=== PATIENT | female | born 1985 | race Caucasian/White ===

== ENCOUNTER 2017-10-08 11:46 | Emergency (ER) | payer OTHER, MEDICAID, SELFPAY ==
[2017-10-08 12:09] VITALS: BP 128/75; PULSE 64; RESP 15; TEMP 36.3; O2SAT 98; BMI 42.9
--- NOTE | 2017-10-08 12:32 | ED.DENTAL ---
HPI - Dental/Oral General Chief complaint: Dental/Oral Stated complaint: STATES TMJ Time Seen by Provider: 10/08/17 12:08 PFSH Social History Smoking Status: Current every day smoker Exam Initial Vital Signs Initial Vital Signs: Vital Signs Temperature 97.3 F L 10/08/17 12:09 Pulse Rate 64 10/08/17 12:09 Respiratory Rate 15 10/08/17 12:09 Blood Pressure 128/75 H 10/08/17 12:09 Pulse Oximetry 64 L 10/08/17 12:09 Course Vital Signs - 8 hr 10/08/17 12:09 Temperature 97.3 F L Pulse Rate 64 Respiratory Rate 15 Blood Pressure 128/75 H Pulse Oximetry 64 L
--- NOTE | 2017-10-08 13:07 | PC.NURSE ---
Pt states TMJ dx since 16 years old after being bucked off a horse. Flare ups happen occasionally and she began experiencing a flare up approx 1 week ago. Her baby tipped her head back and hit the pt in the jaw area, causing swelling and increased pain that radiates down the jaw, neck, and up to the alevism above the eye.
--- NOTE | 2017-10-08 13:29 | ED_ITS ---
HPI - Dental/Oral General Chief complaint: Dental/Oral Stated complaint: STATES TMJ Time Seen by Provider: 10/08/17 12:08 History of Present Illness HPI Narrative: HPI 31-year-old female presents for evaluation of left-sided facial discomfort. Patient reports a history of intermittent pain by her left temporomandibular joint. His pain has occurred intermittently for years following a fall from horseback at age 15. Patient notes that it flared up this morning when she is playing with her child in her child set up quickly and accidentally head butted the side of her left face. The patient's child is approximately 3 years old. Patient noted that she had been having mild left TMJ pain last week. Patient denies fevers, headache, changes in vision or hearing, or ear pain. Patient takes no blood thinners or anticoagulants. No LOC. M/S/F/SocHx notable for: please see HPI; remainder reviewed with patient and in chart. ROS: Negative constitutional, eye, cardiovascular, pulmonary, GI, , MSK, skin , neurologic, psychiatric, endocrine unless noted in the HPI. Exam Gen: Pleasant, non-toxic appearing, resting comfortably HEENT: NC, AT, PEERL, EOMI. TMs clear bilaterally. External auditory canals visually normal bilaterally. Left cheek, face, and temporal region visually normal without palpable abnormalities, no erythema, crepitus, fluctuance, or warmth. Palpation of the temporomandibular joints bilaterally without discernible abnormalities on full opening of mouth and closure. Mouth: globally poor dentition, multiple visible caries, multiple missing teeth , floor of the mouth soft without swelling or tongue elevation, no peritonsilar swelling bilaterally, uvula midline, moist mucus membranes without lesions, tongue without plaques or lesions. Neck: Supple with a full range of motion, no swelling, no cervical lymphdenopathy, no difficulty swallowing. Resp: Clear to auscultation bilaterally, normal work of breathing, no accessory muscle usage. Card: Regular rate and rhythm with no murmurs, rubs, or gallops, extremities warm and well perfused. GI: non-distended MSK: No visible deformities, strength and tone without visually appreciable deficit. Skin: Normal color with no visible lesions. Neuro: AO x 3, no facial asymmetry, vision and hearing WNL. Psych: Mood and affect appropriate. MDM Previous chart, nursing note, and vitals reviewed. A: 31-year-old female presents for evaluation of left-sided facial discomfort after being accidentally struck on the side of the head by your child's head after her child set up suddenly while she (the child) was being held in the mother's hands. DDX: concussion, fracture, jaw fracture, caries, pulpitis, gingivitis, periodontitis, periapical abscess, jaw osteomyelitis, Ludgwig's angina. ED Course: exam without evidence of concussion, fractures, clinically appreciable TMJ dysfunction/subluxation, auditory canal the TMs visually normal , no evidence of cellulitis. Patient with globally poor dentition no evidence of appreciable clinically significant complications. Recommend ibuprofen, acetaminophen, and cold pack with prompt dental follow up for further dental care. Impression: facial pain (please reference below for remainder of encounter information) [facility] Social History Smoking Status: Current every day smoker Exam Initial Vital Signs Initial Vital Signs: Vital Signs Temperature 97.3 F L 10/08/17 12:09 Pulse Rate 64 10/08/17 12:09 Respiratory Rate 15 10/08/17 12:09 Blood Pressure 128/75 H 10/08/17 12:09 Pulse Oximetry 64 L 10/08/17 12:09 Course Vital Signs - 8 hr 10/08/17 12:09 Temperature 97.3 F L Pulse Rate 64 Respiratory Rate 15 Blood Pressure 128/75 H Pulse Oximetry 64 L
[2017-10-08] MEDS: KETOROLAC 60 MG/2 ML VIAL 30 MG IM (13:58)
[2017-10-08 14:00] VITALS: BP 124/92; PULSE 63; RESP 14
[2017-10-08 14:20] VITALS: BP 136/95; PULSE 64; RESP 18; O2SAT 99
== END 2017-10-08 14:21 | disposition home or self-care (01) ==
PROVIDERS: Emergency Provider Emergency Medicine
DX: R51 Headache (principal)
CPT/HCPCS: 96372; 99282; 99283; J1885

== ENCOUNTER → 2019-04-25 18:39 | Outpatient (CLI) | payer OTHER, MEDICAID, SELFPAY | PROVIDERS: Visit Provider Physician Assistant | DX: J02.9 Acute pharyngitis, unspecified (principal) | CPT/HCPCS: 87070 ==

== ENCOUNTER → 2019-07-24 11:11 | Outpatient (CLI) | payer OTHER, MEDICAID, SELFPAY ==
[2019-07-24 12:22] LABS: Influenza A - CEPHEID Flu A NEGATIVE (NEGATIVE); Influenza B - CEPHEID Flu B NEGATIVE (NEGATIVE)
[2019-07-29 12:22] LABS: COVID19 Sendout Not Detected (Not Detected)
== END ==
PROVIDERS: Visit Provider Physician Assistant
DX: R68.89 Other general symptoms and signs (principal)
CPT/HCPCS: 87502; 87635

== ENCOUNTER → 2020-01-01 17:32 | Outpatient (CLI) | payer OTHER, MEDICAID, SELFPAY ==
--- NOTE | 2020-01-01 | DI.MRI.S_ITS ---
PROCEDURE: MR HEAD/BRAIN WO CON INDICATIONS: MIGRAINE TECHNIQUE: Noncontrast axial T1 spin echo, axial T2 fast spin echo, sagittal and axial FLAIR, coronal T2 fast spin echo, axial gradient echo, axial diffusion and ADC through the brain. COMPARISON: None. FINDINGS: Image quality: Excellent. CSF Spaces: Basal cisterns are patent. No extra-axial fluid collections. Ventricles are normal in size and shape. Brain: No intracranial masses or hemorrhage. Conway/white matter interface is normal. Brainstem appears normal. Diffusion-weighted images demonstrate no acute ischemic insult. No chronic ischemic insults. Normal intravascular flow voids are present. Skull and face: Calvarium has normal marrow signal. Orbits appear normal. Sinuses: Sinuses and mastoids are clear. IMPRESSION: Normal for age. Source of headache symptoms is not seen. Dictated by: Fernando Doan M.D. on 01/02/2020 at 8:24 Approved by: Fernando Doan M.D. on 01/02/2020 at 8:25
--- NOTE | 2020-01-01 | DI.MRI.S_ITS ---
PROCEDURE: MR CERVICAL SPINE WO CON INDICATIONS: MIGRAINE TECHNIQUE: Noncontrast sagittal T1 spin echo and T2 fast spin echo, sagittal STIR, foraminal oblique sagittal T2 fast spin echo, and axial gradient echo or T2 fast spin echo through the cervical spine. COMPARISON: None. FINDINGS: Image quality: Excellent. Alignment and Curvature: There is normal bony alignment. Bone Marrow: Marrow demonstrates normal overall signal. Spinal Cord: Visualized spinal cord has normal size and signal but is mildly distorted anteriorly at both C5-6 and C6-7 by chronic appearing posterior disc bulging at these 2 levels. No cerebellar tonsillar herniation. Paraspinous Soft Tissues: No paravertebral masses. Prevertebral soft tissues are normal in thickness. C2-C3: Normal appearance. C3-C4: Normal appearance. C4-C5: Normal appearance. C5-C6: Yimi-ux-djcjsash degenerative disc height reduction and desiccation with a posterior broad-based transverse disc bulge effacing CSF from the anterior thecal sac and slightly flattening the anterior cord, with mild secondary spinal stenosis anteriorly. Facet osteoarthritis at this level produces mild symmetric foraminal stenosis. C6-C7: The degenerative disc disease at this level is slightly more prominent than at the level immediately above and focally produces a small disc protrusion at and to the left of midline effacing CSF from the anterior thecal sac and slightly distorting the midline and left anterior margin of the cervical cord. Facet osteoarthritis is mild at this level, resulting in mild anterior spinal stenosis focally. C7-T1: Normal appearance. IMPRESSION: No disc herniation found. Focal degenerative disc disease is present at C5-6 and C6-7 as discussed above resulting in a transverse pattern of mild anterior spinal stenosis at C5-6 and a more focal midline and left paramedian anterior spinal stenosis at C6-7. Mild symmetric foraminal stenosis at each of these 2 levels is superimposed. Dictated by: Fernando Doan M.D. on 01/02/2020 at 8:25 Approved by: Fernando Doan M.D. on 01/02/2020 at 8:29
== END ==
PROVIDERS: Referring Provider Family Medicine; Visit Provider Family Medicine
DX: G43.909 Migraine, unspecified, not intractable, without status migrainosus (principal); M50.322 Other cervical disc degeneration at C5-C6 level; M48.02 Spinal stenosis, cervical region
CPT/HCPCS: 70551; 72141

== ENCOUNTER → 2020-03-08 09:59 | Outpatient (CLI) | payer OTHER, MEDICAID, SELFPAY ==
--- NOTE | 2020-03-08 | DI.MRI.S_ITS ---
PROCEDURE: MR SHOULDER RT WO CON INDICATIONS: Pain in right shoulder TECHNIQUE: Noncontrast oblique coronal T2 fast spin echo with fat saturation, oblique sagittal T1 spin echo and T2 fast spin echo with fat saturation, axial T1 spin echo and T2 fast spin echo with fat saturation through the shoulder. COMPARISON: None. FINDINGS: Image quality: Excellent. Rotator cuff: Partial-thickness low-grade bursal sided tear of the supraspinatus critical zone. Mild infraspinatus tendinopathy. Teres minor appears intact. Subscapularis tendon appears intact. No atrophy of the rotator cuff muscles however mild fatty infiltration of the infraspinatus. Bones and bursae: No bone marrow contusions or fractures. Moderate acromioclavicular joint degeneration. Acromion demonstrates conventional anatomy, without an os acromiale. Trace subacromial-subdeltoid bursitis. Capsule and soft tissues: Labrum: No definite labral tear is seen there is a presumed posterior synovial fold, image 13/6 (anatomic variant). Long head of the biceps tendon intact. The rotator interval appears normal, without fibrosis. Coracohumeral ligament intact. IMPRESSION: Partial-thickness low-grade bursal sided tear of the supraspinatus critical zone. Mild infraspinatus tendinopathy Trace subacromial-subdeltoid bursitis Dictated by: Nilo Perales M.D. on 03/10/2020 at 8:50 Approved by: Nilo Perales M.D. on 03/10/2020 at 8:59
== END ==
PROVIDERS: PCP Family Medicine; Referring Provider Family Medicine; Visit Provider Family Medicine
DX: M25.511 Pain in right shoulder (principal); M75.111 Incomplete rotator cuff tear or rupture of right shoulder, not specified as traumatic
CPT/HCPCS: 73221

== ENCOUNTER 2021-07-08 13:49 | Emergency (ER) | payer OTHER, MEDICAID, SELFPAY ==
[2021-07-08 13:59] VITALS: BP 120/79; PULSE 81; RESP 22; TEMP 36.6; O2SAT 100
[2021-07-08 14:20] LABS: Add Manual Diff / Slide Review NO; Basophils Absolute Auto 0 /uL (0-100); Basophils Percent Auto 0.6 % (0-2); Eosinophils Absolute Auto 100 /uL (0-450); Hematocrit 39.1 % (36-46); Hemoglobin 12.8 g/dL (12.0-16.0); Lymphocytes Absolute Auto 2200 /uL (1100-4500); Lymphocytes Percent Auto 30.2 % (25-40); Mean Corpuscular HGB Conc 32.9 % (30-36); Mean Corpuscular Hemoglobin 27.2 PG (26-34); Mean Corpuscular Volume 82.9 fL (80-100); Monocytes Absolute Auto 300 /uL (0-900); Neutrophils Absolute Auto 4700 /uL (1500-7000); Neutrophils Percent Auto 64.2 % (50-75); Platelet Count 232 X10^3/uL (150-400); Red Blood Cell Count 4.72 X10^6/uL (4.0-5.2); Red Cell Distribution Width 16.3 % (11.6-14.8); White Blood Cell Count 7.3 X10^3/uL (4.5-11.0)
[2021-07-08 14:28] LABS: Alanine Aminotransferase 13 IU/L (<35); Albumin 4.6 g/dL (3.5-5.0); Albumin Globulin Ratio 1.4 (1.0-2.8); Alkaline Phosphatase 61 U/L (38-126); Aspartate Aminotransferase 24 IU/L (14-36); BUN Creatinine Ratio 22.6 (6-22); Bilirubin Total 0.5 mg/dL (0.2-1.3); Blood Urea Nitrogen 14 mg/dL (7-17); Calcium 9.2 mg/dL (8.4-10.2); Carbon Dioxide 26 mmol/L (22-32); Chloride 106 mmol/L (98-107); Estimated Glomerular Filt Rate > 60.0 mL/min (>60); Globulin 3.4 g/dL (1.7-4.1); Glucose 94 mg/dL (70-100); HEMOLYSIS < 15 (0-50); Lipase 90 U/L (23-300); Potassium 3.9 mmol/L (3.4-5.1); Sodium 137 mmol/L (137-145)
--- NOTE | 2021-07-08 17:42 | DI.CT.S_ITS ---
PROCEDURE: CT ABDOMEN PELVIS W CON INDICATIONS: RLQ pain TECHNIQUE: After the administration of intravenous contrast, axial sections acquired from the lung bases to the pubic symphysis. Coronal and sagittal reformats were performed. For radiation dose reduction, the following was used: automated exposure control, adjustment of mA and/or kV according to patient size. COMPARISON: None. FINDINGS: Image quality: Excellent. Lung bases: Unremarkable. Heart: No significant findings. ABDOMEN: Liver: No masses Gallbladder: Normal wall thickness. Biliary ducts: Nondilated. Pancreas: Normal. Spleen: Normal size. Adrenal Glands: No nodules. Kidneys and Ureters: Normal enhancement. No hydronephrosis or hydroureter. No calcifications. Stomach and Bowel: Pelvic and right abdominal small bowel loops and proximal colon are fluid-filled. The appendix was not well seen. No inflammatory changes. Peritoneum: Trace fluid in the right posterior cul-de-sac. No free intraperitoneal air. Ventral Wall: No hernias. Abdominal Nodes: No retroperitoneal or mesenteric adenopathy by size criteria. Vessels: Aorta and inferior vena cava are normal in size. PELVIS: Pelvic Organs: The retroverted uterus contains a small hyperdense or hyper enhancing endometrial nodule measuring 9 mm. The right ovary is unremarkable. The left ovary contains an involuting hypervascular corpus luteum. Bladder: Unremarkable. Pelvic Nodes: No enlarged lymph nodes. Miscellaneous: No hernias are seen. Bones: Unremarkable. IMPRESSION: 1. Nonvisualization of the appendix. Fluid-filled prominent small and proximal large bowel loops may indicate enteritis. 2. Hyperdense or hypervascular endometrial nodule. Pelvic ultrasound is recommended. Dictated by: Daniella Guerrero M.D. on 07/08/2021 at 18:28 Approved by: Daniella Guerrero M.D. on 07/08/2021 at 18:37
--- NOTE | 2021-07-08 18:20 | ED_ITS ---
HPI - Abdominal Pain General Chief Complaint: Abdominal Pain Stated Complaint: Lower rt abd pain- r/o appendicitis Time Seen by Provider: 07/08/21 17:42 Source: patient Mode of arrival: Ambulatory History of Present Illness HPI narrative: Patient is a 35-year-old female history of chronic pain with who takes oxycodone presenting today with right lower quadrant pain. She states she woke up with right lower quadrant pain. Last night she felt well she ate dinner no problem. She denies any flank pain. It hurts every time she moves. She has not had any nausea or vomiting. She does have a history of ovarian cysts. She was sent here from another provider for rule out appendicitis. She denies any painful or frequent urination. Related Data Previous Rx's Medication Instructions Recorded ondansetron 4 mg disintegrating 4 mg PO Q6-8H PRN #30 tab 06/07/19 tablet albuterol sulfate 90 mcg/actuation 2 puff INHALATION Q4-6H PRN #8.5 07/24/19 aerosol inhaler gram Allergies Allergy/AdvReac Type Severity Reaction Status Date / Time Penicillins Allergy Verified 07/24/19 11:46 clindamycin AdvReac Mild disorented Verified 07/24/19 11:46 Review of Systems Review of Systems Narrative: GENERAL: Denies chills, fatigue, malaise, fever, sweats, travel HEENT: Denies sinus pain, ear pain, sore throat, difficulty swallowing, neck pain RESPIRATORY: Denies dyspnea, cough, wheezing, hemoptysis, sputum. CARDIOVASCULAR: Denies chest pain, palpitations, orthopnea, edema GASTROINTESTINAL: See HPI : Denies dysuria, frequency, incontinence, hematuria, urinary retention, flank pain. MUSCULOSKELETAL: Denies weakness, joint pain, or bony pain SKIN: No rash, no erythema, no pruritus NEUROLOGIC: Denies weakness, dizziness, headache, numbness, change in speech, confusion PSYCHIATRIC: No concerning psychosocial issues. 12 point review of systems is negative except for those stated above and HPI Patient History Social History Smoking Status: Current every day smoker Smoking Status: Current every day smoker alcohol intake frequency: a few times a week Substance Use Type: marijuana Exam Initial Vital Signs Initial Vital Signs: Vital Signs Temperature 97.9 F 07/08/21 13:59 Pulse Rate 81 07/08/21 13:59 Respiratory Rate 22 07/08/21 13:59 Blood Pressure 120/79 07/08/21 13:59 Pulse Oximetry 100 07/08/21 13:59 GENERAL: Well-appearing, well-nourished and in no acute distress. HEENT: Head atraumatic,EOMI, pupils reactive, face symmetric, moist mucous membranes CARDIOVASCULAR: Regular rate and rhythm without murmurs, rubs or gallops. RESPIRATORY: Breath sounds equal bilaterally, no wheezes rales or rhonchi. ABDOMEN: Soft, right lower quadrant tenderness no guarding no rebound the lower abdominal pain negative Lockhart sign EXTREMITIES: Normal range of motion, no clubbing or edema. Neurovascularly intact NEUROLOGICAL: Alert and oriented x4.Normal gait and speech. SKIN: Warm, dry, no laceration, no petechiae, no rashes or lesions. Course Orders Ordered: Discontinued Medications Hydromorphone HCl (Hydromorphone 2 Mg Inj) 1 mg SUBCUT Q4H PRN PRN Reason: Pain, Severe (7-10) Hydromorphone HCl (Hydromorphone 1 Mg Inj) 1 mg IV NOW ONE Stop: 07/08/21 19:03 Last Admin: 07/08/21 19:13 Dose: 1 mg Documented by: RIP Ketorolac Tromethamine (Ketorolac 30 Mg/Ml Vial) 15 mg IV NOW ONE Stop: 07/08/21 17:43 Last Admin: 07/08/21 18:32 Dose: 15 mg Documented by: DRE Vital Signs Vital signs: Vital Signs - 8 hr 07/08/21 13:59 07/08/21 18:31 Temperature 97.9 F Pulse Rate 81 67 Respiratory Rate 22 Blood Pressure 120/79 130/82 Pulse Oximetry 100 100 MDM - Abdominal Pain Lab Data Result diagrams: 07/08/21 14:07 07/08/21 14:07 Labs: Lab Results 07/08/21 07/08/21 Range/Units 14:07 14:07 WBC 7.3 (4.5-11.0) X10^3/uL RBC 4.72 (4.0-5.2) X10^6/uL Hgb 12.8 (12.0-16.0) g/dL Hct 39.1 (36-46) % MCV 82.9 (80-100) fL MCH 27.2 (26-34) PG MCHC 32.9 (30-36) % RDW 16.3 H (11.6-14.8) % Plt Count 232 (150-400) X10^3/uL Neut % (Auto) 64.2 (50-75) % Lymph % (Auto) 30.2 (25-40) % [place] % (Auto) 4.0 (3-14) % Eos % (Auto) 1.0 L (2-4) % Baso % (Auto) 0.6 (0-2) % Neut # (Auto) 4700 (8509-0205) /uL Lymph # (Auto) 2200 (6801-1825) /uL [place] # (Auto) 300 (0-900) /uL Eos # (Auto) 100 (0-450) /uL Baso # (Auto) 0 (0-100) /uL Sodium 137 (137-145) mmol/L Potassium 3.9 (3.4-5.1) mmol/L Chloride 106 (98-107) mmol/L Carbon Dioxide 26 (22-32) mmol/L BUN 14 (7-17) mg/dL Creatinine 0.62 (0.52-1.04) mg/dL Estimated GFR > 60.0 (>60) mL/min BUN/Creatinine Ratio 22.6 H (6-22) Glucose 94 (70-100) mg/dL Calcium 9.2 (8.4-10.2) mg/dL Total Bilirubin 0.5 (0.2-1.3) mg/dL AST 24 (14-36) IU/L ALT 13 (<35) IU/L Alkaline Phosphatase 61 (38-126) U/L Total Protein 8.0 (6.3-8.2) g/dL Albumin 4.6 (3.5-5.0) g/dL Globulin 3.4 (1.7-4.1) g/dL Albumin/Globulin Ratio 1.4 (1.0-2.8) Lipase 90 (23-300) U/L Point of care testing: Point of Care Testing Test Results Negative Urine Dip Bedside Urine Glucose Negative Bedside Urine Bilirubin - Negative Bedside Urine Ketone +/- 5 Urine Specific [place] 1.025 Bedside Urine Occult Blood - Negative Bedside Urine pH 6.0 Bedside Urine Protein - Negative Bedside Urine Urobilinogen - Negative Bedside Urine Nitrite - Negative Bedside Urine Leukocytes - Negative Esterase Imaging Data CT scan - abdomen/pelvis: Radiologist's Impression: PROCEDURE:? CT ABDOMEN PELVIS W CON ? INDICATIONS:? RLQ pain ? TECHNIQUE:? After the administration of intravenous contrast, axial sections acquired from the lung bases to the pubic symphysis.? Coronal and sagittal reformats were performed.? For radiation dose reduction, the following was used:? automated exposure control, adjustment of mA and/or kV according to patient size.? ? COMPARISON:? None. ? FINDINGS:? Image quality:? Excellent.? ? Lung bases:? Unremarkable. Heart:? No significant findings. ? ABDOMEN: Liver:? No masses Gallbladder:? Normal wall thickness. Biliary ducts:? Nondilated. Pancreas:? Normal. Spleen:? Normal size. Adrenal Glands:? No nodules. Kidneys and Ureters:? Normal enhancement.? No hydronephrosis or hydroureter.? No calcifications. ? Stomach and Bowel:? Pelvic and right abdominal small bowel loops and proximal colon are fluid-filled.? The appendix was not well seen.? No inflammatory changes. Peritoneum:? Trace fluid in the right posterior cul-de-sac.? No free intraperitoneal air. ? Ventral Wall: ? No hernias.? Abdominal Nodes:? No retroperitoneal or mesenteric adenopathy by size criteria.? Vessels:? Aorta and inferior vena cava are normal in size.? ? PELVIS: Pelvic Organs:? The retroverted uterus contains a small hyperdense or hyper e nhancing endometrial nodule measuring 9 mm.? The right ovary is unremarkable.? The left ovary contains an involuting hypervascular corpus luteum.? Bladder:? Unremarkable.? ? Pelvic Nodes: No enlarged lymph nodes.? Miscellaneous: No hernias are seen. ? ? ? Bones:? Unremarkable.? IMPRESSION:? ? 1. Nonvisualization of the appendix.? Fluid-filled prominent small and proximal large bowel loops may indicate enteritis. ? 2. Hyperdense or hypervascular endometrial nodule.? Pelvic ultrasound is rec ommended. ? ? ? Dictated by: Daniella Guerrero M.D. on 07/08/2021 at 18:28 ? ? MDM Narrative Medical decision making narrative: Patient is afebrile without leukocytosis. CT shows inflammation and probable enteritis. Patient now reports that she has had diarrhea below last 3 days. Nonbloody no nausea or vomiting. At this time I recommend supportive care only, no indication for antibiotics. However symptoms worsen she may require antibiotics. She had diarrhea today. Decreased appetite for sure. Discharge Plan Departure Patient Disposition: Home Clinical Impression: Gastroenteritis Instructions: DI for Viral Gastroenteritis -- Adult Activity Restrictions/Additional Instructions: *You have been diagnosed with gastroenteritis *What to do: At this time appendix is not fully visualized, but you do have some inflammation. No antibiotics at this time. Increase fluid intake with Gatorade or Gatorade like substance. You may also require an outpatient pelvic ultrasound, for abnormal endometrium *Continue to take medications as directed *Follow up with your primary care provider in 2-3 days or call [phone] *Return to ER if you should have increasing abdominal pain, inability to tima ate fluid, fever or any new, worsening or concerning symptoms Prescriptions: No Action albuterol sulfate 90 mcg/actuation HFA aerosol inhaler 2 puff INHALATION Q4-6H PRN (Reason: bronchospasm) Qty: 8.5 0RF ondansetron 4 mg tablet,disintegrating 4 mg PO Q6-8H PRN (Reason: nausea and vomiting) Qty: 30 0RF Referrals: Jona Graff MD [Primary Care Provider] - Stand Alone Forms: Work Release Note
[2021-07-08 18:31] VITALS: BP 130/82; PULSE 67; O2SAT 100
[2021-07-08] MEDS: KETOROLAC 30 MG/ML VIAL 15 MG IV (18:32)
[2021-07-08] MEDS: HYDROMORPHONE 1 MG INJ IV (19:13)
[2021-07-08 19:16] VITALS: BP 129/74; PULSE 77; RESP 16; O2SAT 99
== END 2021-07-08 19:16 | disposition home or self-care (01) ==
PROVIDERS: Emergency Provider Emergency Medicine; PCP Family Medicine
DX: K52.9 Noninfective gastroenteritis and colitis, unspecified (principal); F17.200 Nicotine dependence, unspecified, uncomplicated
CPT/HCPCS: 36415; 74177; 80053; 81003; 81025; 83690; 85025; 96374; 96375; 99284; J1170; J1885; Q9967

== ENCOUNTER → 2022-05-14 14:21 | Outpatient (CLI) | payer OTHER, MEDICAID, SELFPAY ==
[2022-05-14 15:26] LABS: Add Manual Diff / Slide Review NO; Basophils Absolute Auto 0 /uL (0-100); Basophils Percent Auto 0.6 % (0-2); Eosinophils Absolute Auto 100 /uL (0-450); Eosinophils Percent Auto 1.5 % (2-4); Hematocrit 36.7 % (36-46); Hemoglobin 11.8 g/dL (12.0-16.0); Lymphocytes Absolute Auto 1700 /uL (1100-4500); Lymphocytes Percent Auto 23.6 % (25-40); Mean Corpuscular HGB Conc 32.3 % (30-36); Mean Corpuscular Hemoglobin 27.3 PG (26-34); Mean Corpuscular Volume 84.5 fL (80-100); Monocytes Absolute Auto 400 /uL (0-900); Neutrophils Absolute Auto 5000 /uL (1500-7000); Neutrophils Percent Auto 68.3 % (50-75); Platelet Count 255 X10^3/uL (150-400); Red Blood Cell Count 4.34 X10^6/uL (4.0-5.2); Red Cell Distribution Width 17.8 % (11.6-14.8); White Blood Cell Count 7.3 X10^3/uL (4.5-11.0)
[2022-05-14 15:41] LABS: Alanine Aminotransferase 29 IU/L (<35); Albumin 4.5 g/dL (3.5-5.0); Albumin Globulin Ratio 1.3 (1.0-2.8); Alkaline Phosphatase 78 U/L (38-126); Aspartate Aminotransferase 34 IU/L (14-36); BUN Creatinine Ratio 31.6 (6-22); Bilirubin Total 0.4 mg/dL (0.2-1.3); Blood Urea Nitrogen 18 mg/dL (7-17); Calcium 9.5 mg/dL (8.4-10.2); Carbon Dioxide 29 mmol/L (22-32); Chloride 101 mmol/L (98-107); Estimated Glomerular Filt Rate > 60 mL/min (>60); Globulin 3.5 g/dL (1.7-4.1); Glucose 96 mg/dL (70-100); HEMOLYSIS < 15 (0-50); Potassium 4.2 mmol/L (3.4-5.1); Sodium 139 mmol/L (137-145)
[2022-05-14 15:54] LABS: Free T4, Direct Thyroxine 0.94 ng/dL (0.78-2.19)
[2022-05-14 16:28] LABS: Vitamin B12 530 pg/mL (239-931)
[2022-05-14 16:33] LABS: Thyroid Stimulating Hormone 0.346 uIU/mL (0.47-4.68)
[2022-05-14 17:36] LABS: Vitamin D 25 Hydroxy (D3) 19.8 ng/mL (30.0-100.0)
== END ==
PROVIDERS: PCP Family Medicine; Referring Provider Obstetrics & Gynecology; Visit Provider Obstetrics & Gynecology
DX: Z79.899 Other long term (current) drug therapy (principal); E55.9 Vitamin D deficiency, unspecified; E03.9 Hypothyroidism, unspecified; F32.9 Major depressive disorder, single episode, unspecified; G43.001 Migraine without aura, not intractable, with status migrainosus; N93.9 Abnormal uterine and vaginal bleeding, unspecified
CPT/HCPCS: 36415; 80053; 82306; 82607; 84439; 84443; 85025

== ENCOUNTER → 2022-05-21 14:30 | Outpatient (CLI) | payer OTHER, MEDICAID, SELFPAY ==
[2022-05-21 15:31] LABS: COVID19 -Nasal RAPID Negative (Negative)
== END ==
PROVIDERS: PCP Family Medicine; Visit Provider Obstetrics & Gynecology
DX: Z01.812 Encounter for preprocedural laboratory examination (principal); Z20.822 Contact with and (suspected) exposure to COVID-19
CPT/HCPCS: 87635; C9803

== ENCOUNTER 2022-05-24 08:59 | Day surgery (SDC) | payer OTHER, MEDICAID, SELFPAY ==
[2022-05-20 14:52] VITALS: BMI 41.1
[2022-05-24] VITALS (13 sets, daily range): BP systolic 111–135; BP diastolic 61–88; PULSE 79–93; RESP 13–21; TEMP 36.1–36.8; O2SAT 90–99; BMI 41.1
--- NOTE | 2022-05-24 | PATH_ITS ---
[facility] Accession Number: [id number] No. of containers..01 Tissue . 01 Material submitted: . uterus - UTERUS, BILATERAL FALLOPIAN TUBES . 01 Clinical history: . LAPAROSCOPIC TOTAL HYSTERECTOMY *OPB* . 01 Diagnosis: Uterus and Bilateral Fallopian Tubes; Hysterectomy and Bilateral Salpingectomy: Early secretory phase endometrium. Negative for hyperplasia, atypia, endometria polyps and malignancy. Negative for adenomyosis, on equal opportunity representative sections from the myometrium. Sections from fallopian tubes without significant diagnostic abnormalities. [facility] 05/26/2022 1425 Local . 01 Electronically signed: . Milady Edge MD, Pathologist NPI- [id number] . 01 Gross description: . The specimen is received in formalin labeled with the patient's name, , and uterus, bilateral fallopian tubes, and consists of a fragmented uterus (100 grams, 10.4 x 9.3 x 3.5 cm), fallopian tube fragment without identifiable fimbriae (2.9 x 0.3 cm), fallopian tube fragment without identifiable fimbriae (4.5 x 0.4 cm), detached fragment of fimbriae (1.7 x 0.9 cm), with no cervix or additional adnexa identified. The serosa is butler and smooth with no evidence of adhesions or hemorrhage grossly identified. The identifiable endometrium is brown and velvety and averages 0.2 cm thick with no polyps or lesions grossly identified. The myometrium is pink-butler and trabecular with no nodules or lesions identified and measures up to 2.3 cm thick. One fragment of fallopian tube has congested roughened serosa with no cystic structures or fimbriae identified, and sectioning reveals a congested stellate lumen. The other nonfimbriated fallopian tube has butler smooth serosa with no cystic structures identified, and sectioning reveals an unremarkabel stellate lumen. The fimbriated fragment has congested smooth serosa with no cystic structures identified and bisecting reveals an unremarkable lumen. Diesel Tractor Operator sections are submitted as follows: A1-A2: Full thickness sections. A3: Additional endometrium. A4: Serosa. A5: Fallopian tube cross-sections. A6: Fallopian tube cross-sections. A7: Bisected fimbriae. ([id number]) /BHAVIN 05/26/2022 [facility] Local . 01 Pathologist provided ICD-10: N92.0 . 01 CPT . 478573 Specimen Comment: A courtesy copy of this report has been sent to [phone] Performed at: 01 [facility] [address] [place] [address], [place], [place] [id number] MD Daniel Velez MD Phone: [phone]
--- NOTE | 2022-05-24 09:17 | PM.PREOP ---
Pre-operative Note COVID-19 COVID-19 status: Negative Result date/Date tested (Pos, Neg/Pending): 05/21/22 Criteria for continued procedure: Non-surgical alternatives not available or appropriate per current SOC Interval Note History & Physical reviewed/Exam performed by Physician: Yes Changes to H&P: No H&P completed within 30 days and has changed as indicated here:: 05/07/22
[2022-05-24] MEDS: LACTATED RINGERS 1,000 ML 100 ML IV (09:18)
[2022-05-24] MEDS: CEFAZOLIN 2 GM/100 ML PREMIX 100 ML IV (09:50)
--- NOTE | 2022-05-24 09:59 | SUR.OPER ---
Lithotomy on padded OR bed. [place] Pad Positioner under torso. Head on pillow, arms padded and tucked at sides. Legs secured in padded yellow fins stirrups. Pt positioned per direction and supervision of Dr Julian.
[2022-05-24] MEDS: BUPIVACAINE 0.5% W/ EPI (PF) 30 ML VIAL INJ (10:06)
[2022-05-24] MEDS: ROPIVACAINE 0.2% PF 2 MG/ML 20ML AMP 20 ML INJ (11:05)
[2022-05-24] MEDS: HYDROCODONE/ACET 5/325 TABLET 1 TAB PO (12:01)
[2022-05-24] MEDS: OXYCODONE IR 5 MG TABLET PO (12:35)
--- NOTE | 2022-05-24 12:52 | P.OP_ITS ---
Operative Date/Time/Diagnoses Date of procedure: 05/24/22 Time of procedure: 11:30 Pre-op diagnosis: Menorrhagia Dysmenorrhea Post-op diagnosis: same Procedure & Clinicians Procedure: Procedures Operation Date: 05/24/22 09:45 Actual Procedure Side Surgeon p Laparoscopic Supracervical hysterectomy w. bilateral salpingectomy Bilateral Coni Julian MD Indications: Menorrhagia Dysmenorrhea Surgeon: Coni Julian Lace Pinner: Shilpa Carrillo Anesthesia Type: General and Local Operative Notes Findings: 9 week size anteverted uterus Normal tubes and ovaries Normal liver and gallbladder Normal appendix Closure Type: primary Specimen(s): left tube, right tube and uterus Applied: catheter (Removed at the end of the case) Estimated blood loss (mL): 50 Blood products transfused: none Procedure in detail: The patient was taken to the operating room where she was placed in the dorsal supine position. After adequate general endotracheal anesthesia was achieved, she was placed in the dorsal lithotomy position, and prepped and draped in the usual sterile fashion. A timeout was performed. A bivalve speculum was placed into the vagina and the anterior lip of the cervix grasped with a single-tooth tenaculum. The cervical os was sequentially dilated until the ZUMI uterine manipulator could pass easily into the endometrial cavity. The single-tooth tenaculum was removed from the anterior lip of the cervix, and the bivalve speculum was removed from the vagina. Attention was then turned to the abdomen where 6 mL of half percent Marcaine with epinephrine were injected in the umbi lical fold. A 5 mm incision was made. The Verees needle was placed into the peritoneal cavity, and its placement confirmed by aspiration and drop test. The Verees needle was removed. A 5 mm trocar was placed without difficulty. 2 other incisions were made 4 cm lateral to the umbilicus after 5 mL of half percent Marcaine with epinephrine were injected. These were 5 mm incisions. Two 5 mm trocars were placed under direct visualization. The right tube was grasped with an atraumatic grasper. Using the power seal, the mesosalpinx was cauterized and cut all the way down to the cornua of the uterus. The cornua of the uterus was then grasped with an atraumatic grasper. The utero-ovarian ligaments were cauterized and cut. The round ligament and broad ligament was cauterized and cut with the power seal. Hemostasis was achieved. The bladder flap was created using the power seal with cautery and cut nursing home across. The uterine arteries on the right side were extensively cauterized with the power seal. All of this was repeated on the left side. The remainder of the bladder flap was created using the power seal, and the bladder taken down off the lower uterine segment and cervix. Using the L[place]oop, the cervix was amputated from the uterus 2 cm above the uterosacral ligaments, after the ZUMI uterine manipulator was removed from the uterus. There was a small amount of bleeding noted from the posterior edge of the cervix, and this was cauterized for hemostasis using the spatula cautery. A sponge stick was placed into the vagina. 6 mL of half percent Marcaine with epinephrine were injected above the pubic symphysis. A 12 mm trocar was placed. An Endobag was placed through the suprapubic trocar and the uterus and tubes were placed into the Endobag. The trocar was removed, and the edges of the bag were brought up through the skin. The uterus was grasped with a Orlando. The Seferino was placed into the endobag. The uterus was hand morcellated in approximately 10 pieces. The Endobag and Seferino were removed from the peritoneal cavity. The pelvis was copiously irrigated with warm normal saline. No bleeding was noted. 20 cc of 0.2% ropivacaine were placed over the pedicles. The instruments were removed from the abdomen. The CO2 was allowed to escape. The suprapubic incision was closed on the fascia with 0 Vicryl. Two simple interrupted sutures were placed in the subcutaneous layer to reapproximate in the suprapubic incision. All of the incisions were closed with 4-0 Monocryl in a subcuticular fashion. Steri-Strips and Allevyn dressings were placed. The moistened sponge stick was removed from the vagina. Sponge, lap, and instrument counts were correct x-2. The patient tolerated the procedure well, was taken to PACU in stable condition. Complications: none Post-operative Condition: stable Disposition: PACU Plan for aftercare: Home after recovery
== END 2022-05-24 13:14 | disposition home or self-care (01) ==
LOC: OR 08:59 → AC 09:00
PROVIDERS: Obstetrics & Gynecology; PCP Family Medicine; Referring Provider Obstetrics & Gynecology; Visit Provider Obstetrics & Gynecology
PROC: 0UT94ZL Resection of Uterus, Supracervical, Percutaneous Endoscopic Approach (ICD-10-PCS; CPT 58542; principal; 2022-05-24 09:45)
DX: N92.0 Excessive and frequent menstruation with regular cycle (principal); N94.6 Dysmenorrhea, unspecified
CPT/HCPCS: 58542; J0690; J1100; J1170; J1885; J2250; J2405; J2704; J2795; J3010

== ENCOUNTER → 2023-08-22 19:46 | Outpatient (CLI) | payer OTHER, MEDICAID, SELFPAY ==
--- NOTE | 2023-08-22 | DI.MRI.S_ITS ---
PROCEDURE: MR SHOULDER RT WO CON INDICATIONS: ACUTE PAIN IN RT SHOULDER TECHNIQUE: Noncontrast oblique coronal T2 fast spin echo with fat saturation, oblique sagittal T1 spin echo and T2 fast spin echo with fat saturation, axial T1 spin echo and T2 fast spin echo with fat saturation through the shoulder. COMPARISON: [facility], CR, XR SHOULDER 2+ VIEWS RIGHT, 08/12/2023, 9:09. [facility], MR, MR SHOULDER RT WO CON, 03/08/2020, 10:10. FINDINGS: Image quality: Excellent. Rotator cuff: Moderate supraspinatus tendinosis. There is low-grade partial-thickness tear of the supraspinatus tendon from the musculotendinous junction to the footprint. There is mild edema at the musculotendinous junction, compatible with superimposed old muscle strain. No supraspinatus tendon retraction. Subtle fatty infiltration of the supraspinatus muscle suggesting minimal muscle atrophy. There is mild infraspinatus and moderate subscapularis tendinosis without tendon tear. Bones and bursae: No bone marrow contusions or fractures. There is acromioplasty and partial resection of the distal clavicle. The acromion demonstrates conventional anatomy, without an os acromiale. There is small subcoracoid bursal fluid consistent with mild bursitis. Capsule and soft tissues: There is tenodesis of the long head of the biceps. The rotator interval appears normal, without fibrosis. The coracohumeral ligament is normal in thickness. IMPRESSION: 1. Moderate supraspinatus tendinosis with low-grade partial-thickness tear. There is mild muscle strain at the musculotendinous junction. No supraspinatus tendon retraction. There is minimal supraspinatus muscle atrophy. 2. Mild infraspinatus tendinosis. 3. Moderate subscapularis tendinosis. 4. Tenodesis of the long head of the biceps. 5. Mild subcoracoid bursitis. Dictated by: Maria De Jesus Tellez M.D. on 08/23/2023 at 11:54 Approved by: Maria De Jesus Tellez M.D. on 08/23/2023 at 12:10
== END ==
PROVIDERS: PCP Family Medicine; Referring Provider Physician Assistant; Visit Provider Physician Assistant
DX: M75.111 Incomplete rotator cuff tear or rupture of right shoulder, not specified as traumatic (principal); M25.511 Pain in right shoulder; M75.51 Bursitis of right shoulder
CPT/HCPCS: 73221